=== PATIENT | male | born 1985 | race Caucasian/White ===

== ENCOUNTER 2020-09-01 03:35 | Emergency (ER) | payer MEDICARE, MEDICAID ==
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
== END 2020-09-01 03:50 ==
LOC: EDBD 03:35 → JD.ED 03:35
DX: T24.111A Burn of first degree of right thigh, initial encounter (principal); X58.XXXA Exposure to other specified factors, initial encounter
CPT/HCPCS: 99283